=== PATIENT | male | born 1970 ===

== ENCOUNTER 2024-08-15 06:54 | Day surgery (SDC) | payer OTHER ==
[~2024-08-15] VITALS: Ht 172.7 cm; Wt 76.7 kg
[~2024-08-15 06:54] MED LIST: LR 1,000 ML IV SCH; Ondansetron 4 MG/2 ML VIAL IV PRN
[2024-08-15 07:18] VITALS: BP 125/92; PULSE 63; TEMP 97.3
[2024-08-15] MEDS ORDERED: PRILOSEC 20MG20 MG PO (08:01)
[2024-08-15] MEDS ORDERED: ZOLOFT 100MG100 MG PO (08:05)
[2024-08-15] MEDS ORDERED: CRESTOR20 MG PO (08:06)
[2024-08-15] MEDS ORDERED: INDERAL 10MG10 MG PO (08:06)
[2024-08-15] MEDS ORDERED: ROBAXIN 75750 MG/TAB PO (08:06)
[2024-08-15] MEDS ORDERED: Lidocaine PF 2% (20 MG/ML) 5 ML VIAL ONE (08:06)
[2024-08-15] MEDS ORDERED: FLEXERIL 1010 MG/TAB PO (08:07)
[2024-08-15] MEDS ORDERED: VOLTAREN GEL 1%1 TU TP (08:07)
[2024-08-15 08:55] VITALS: BP 117/85; PULSE 64; TEMP 97.1
[2024-08-15 09:10] VITALS: BP 124/90; PULSE 60
[2024-08-15 09:25] VITALS: BP 119/88; PULSE 60
--- NOTE | 2024-08-15 09:35 | NUR ---
0855 RETURNS TO ROOM 6 PER CART. AWAKE, ALERT, RESP UNLABORED. AMBULATES TO RECLINER WITH STANDBY ASSIST. DENIES NAUSEA OR ABD PAIN. VITAL SIGNS OBTAINED. CALL LIGHT AT SIDE. IN ROOM 0905 DISCHARGE INSTRUCTIONS REVIEWED. PATIENT VERBALIZES UNDERSTANDING. COPY PROVIDED IN DISCHARGE FOLDER. TOLERATES PO SODA, ICE CREAM AND CRACKERS WITHOUT NAUSEA 0920 DRESSES SELF. WAITING FOR VISIT FROM 09 DR BARBER HERE TO VISIT WITH PATIENT
== END 2024-08-15 09:35 | disposition home or self-care (01) ==
LOC: SDCO 06:54
DX: Z12.11 Encounter for screening for malignant neoplasm of colon (principal); K57.30 Diverticulosis of large intestine without perforation or abscess without bleeding; G47.33 Obstructive sleep apnea (adult) (pediatric)
CPT/HCPCS: J2704; J7120